=== PATIENT | male | born 1960 | race Caucasian/White ===

== ENCOUNTER 2019-06-18 10:18 | Emergency (ER) | payer SELFPAY ==
[2019-06-18 12:58] VITALS: BP 156/106
== END 2019-06-18 12:57 | disposition home or self-care (01) ==
LOC: ED 10:18

== ENCOUNTER 2023-03-17 09:26 | Inpatient (IN) ==
[2023-03-17 10:01] LABS: ABS Basophils 0.1 10^3/uL (0.0-0.1); ABS Lymphocytes 0.9 10^3/uL (1.0-4.8); ABS Monocytes 0.5 10^3/uL (0.0-1.1); ABS Neutrophils 7.8 10^3/uL (1.5-7.6); Eosinophil % 0.5 %; Hematocrit 42.8 % (38-53); Hemoglobin 14.2 g/dL (13.2-16.3); Lymphocyte % 9.7 %; Mean Corpuscular Hemoglobin 29.5 pg (27-33); Mean Corpuscular Hgb Conc 33.2 g/dL (31-36); Mean Corpuscular Volume 88.6 fL (80-97); Mean Platelet Volume 8.4 fL (7.5-11.2); Platelet Count 324 10^3/uL (150-450); Red Blood Count 4.83 10^6/uL (4.06-5.63); Red Cell Distribution Width 14.1 % (12-17); White Blood Count 9.3 10^3/uL (3.6-10.2)
[2023-03-17 10:19] LABS: Albumin 3.7 g/dL (3.2-5.2); Albumin/Globulin Ratio 1.5 (1-3); C Reactive Protein 3.5 mg/L (<8.01); Calcium 8.6 mg/dL (8.6-10.3); Creatinine, Serum 1.21 mg/dL (0.67-1.17); Direct Bilirubin 0.1 mg/dL (0.03-0.18); Globulin 2.4 g/dL (2-4); HDL Cholesterol 40.6 mg/dL; Indirect Bilirubin 0.6 mg/dL (0.3-1.0); Potassium 3.8 mmol/L (3.5-5.0); Total Bilirubin 0.7 mg/dL (0.2-1.0); Total Protein 6.1 g/dL (6.4-8.9); eGFR CKD-EPI 66.4 (>60)
[2023-03-17 10:20] LABS: Activated Partial Thrombo Time 36.5 seconds (26.0-38.0); INR 1.34 (0.83-1.13)
[2023-03-17 10:46] LABS: Alcohol, S < 13 mg/dL (<13)
[2023-03-17 11:38] LABS: High Sensitivity Troponin 1 Hr 9 pg/mL (<20)
[2023-03-17] MEDS: fentaNYL 100 mcg/2 ml 50 MCG/ML VIAL IV SLOW PU ONE (12:35)
[2023-03-17 13:24] LABS: TSH Ultra Thyroid Stim Horm 2.84 mcIU/mL (0.34-5.60)
[2023-03-17 13:35] LABS: Folate 12.28 ng/mL (5.90-24.80)
[2023-03-17 13:36] LABS: Vitamin B12 312 pg/mL (180-914)
[2023-03-17] MEDS ORDERED: Thiamine 100 MG/ML 2 ml VIAL 500 MG in NS 0.9% 250 ml 250 ML IV SCH (14:00)
[2023-03-17] MEDS: NS 0.9% 1000 ml BAG 1,000 ML IV SCH (15:09)
[2023-03-17] MEDS: Thiamine 100 MG/ML 2 ml VIAL 500 MG in NS 0.9% 250 ml 250 ML IV SCH ×2 (15:09→23:00)
[2023-03-17] MEDS ORDERED: Rocuronium 50 mg VIAL 10 mg/ml 5 ml VIAL (50 mg) ONE (17:27)
[2023-03-17] MEDS ORDERED: Succinylcholine 200 mg VIAL 20 mg/ml 10 ml VIAL (200 mg) ONE (17:27)
[2023-03-17] MEDS ORDERED: diazePAM INJ CARPUJECT 5 MG/ML SYRINGE ONE (17:29)
[2023-03-17] MEDS ORDERED: levETIRAcetam 1000MG IVPREMIX 1,000 MG/100 ML BAG ONE (17:37)
[2023-03-17] MEDS ORDERED: Propofol 10 mg/ml 100 ML BTL 1,000 MG/100 ML BTL ONE (17:38)
[2023-03-17] MEDS: Midazolam PREMIXBAG 1 MG/ML NS 100 ML IV SCH ×2 (18:14→21:18)
[2023-03-17] MEDS ORDERED: Lorazepam PYXIS KEY PRN (18:20)
[2023-03-17] MEDS ORDERED: Midazolam 5 mg/ml concentrated 5 mg/ml 1 ml VIAL ONE (18:47)
[2023-03-17] MEDS: Midazolam 10 mg/10 ml VIAL 1 mg/ml 10 ml VIAL (10 mg) IV SLOW PU ONE (19:04)
[2023-03-17] MEDS: Lidocaine 1% VIAL 10 MG/ML 30 ML VIAL INJ ONE (20:23)
[2023-03-17 20:40] LABS: Urine Appearance Cloudy; Urine Bilirubin Negative (Negative); Urine Blood 2+ (Negative); Urine Color Yellow; Urine Glucose Negative (Negative); Urine Ketones Negative (Negative); Urine Nitrite Negative (Negative); Urine Protein 2+(100 mg/dL) (Negative); Urine Specific Gravity 1.032 (1.002-1.030); Urine Urobilinogen Negative (Negative)
[2023-03-17 20:47] LABS: Calcium 8.6 mg/dL (8.6-10.3); Creatinine, Serum 1.14 mg/dL (0.67-1.17); Potassium 3.9 mmol/L (3.5-5.0); eGFR CKD-EPI 71.4 (>60)
[2023-03-17 20:53] LABS: Urine Benzodiazepine Screen Presumptive Positive (None Detect); Urine Cannabinoids Screen None Detected (None Detect); Urine Opiates Screen None Detected (None Detect)
[2023-03-17 20:57] LABS: Urine Bacteria 1+ (Absent); Urine Red Blood Cell 2+(6-10/hpf) (Absent); Urine White Blood Cell Trace(0-5/hpf) (Absent)
[2023-03-17] MEDS: Chlorhexidine MOUTHWASH 0.12% 15 ML UDC TOPICAL SCH (22:45)
[2023-03-18] MEDS: fentaNYL INFUSION 50 mcg/mL VL 2,500 MCG/50 ML VIAL IV SCH (01:54)
[2023-03-18] MEDS: LORazepam 2 mg VIAL 1 ml IV PUSH SCH (02:11)
[2023-03-18 06:34] LABS: ABS Basophils 0.1 10^3/uL (0.0-0.1); ABS Lymphocytes 0.8 10^3/uL (1.0-4.8); ABS Monocytes 1.2 10^3/uL (0.0-1.1); ABS Neutrophils 8.9 10^3/uL (1.5-7.6); Eosinophil % 0.1 %; Hematocrit 37.2 % (38-53); Hemoglobin 12.8 g/dL (13.2-16.3); Mean Corpuscular Hemoglobin 30.1 pg (27-33); Mean Corpuscular Hgb Conc 34.3 g/dL (31-36); Mean Corpuscular Volume 87.7 fL (80-97); Mean Platelet Volume 8.3 fL (7.5-11.2); Platelet Count 297 10^3/uL (150-450); Red Blood Count 4.24 10^6/uL (4.06-5.63); White Blood Count 10.9 10^3/uL (3.6-10.2)
[2023-03-18 06:51] LABS: Albumin 3.5 g/dL (3.2-5.2); Albumin/Globulin Ratio 1.5 (1-3); Calcium 8.3 mg/dL (8.6-10.3); Creatinine, Serum 1.02 mg/dL (0.67-1.17); Globulin 2.3 g/dL (2-4); Magnesium 1.6 mg/dL (1.9-2.7); Potassium 3.7 mmol/L (3.5-5.0); Total Bilirubin 1.6 mg/dL (0.2-1.0); Total Protein 5.8 g/dL (6.4-8.9); eGFR CKD-EPI 81.6 (>60)
[2023-03-18] MEDS: Iodixanol 320 (CONTRAST) 100 ML SDV IV ONE (07:29)
[2023-03-18] MEDS: levETIRAcetam 500 MG IVPREMIX 500 MG/100 ML BAG IV SCH (08:59)
[2023-03-18] MEDS: Pantoprazole VIAL 40 MG VIAL IV SCH (09:07)
[2023-03-18] MEDS: Midazolam PREMIXBAG 1 MG/ML NS 100 ML IV SCH (10:11)
[2023-03-18] MEDS: Midazolam 5 mg/5 ml VIAL 1 mg/ml 5 ml VIAL (5 mg) IV SLOW PU ONE (17:23)
[2023-03-18] MEDS: Midazolam 5 mg/5 ml VIAL 1 mg/ml 5 ml VIAL (5 mg) ONE (17:29)
[2023-03-18] MEDS: Acetaminophen IV 1 GM/100ML 1,000 MG/100 ML BAG IV PRN (19:10)
[2023-03-18] MEDS: Cefepime 2 GM in Dextrose 2 GM/50 ML BAG IV SCH (19:59)
[2023-03-18] MEDS: Enoxaparin 100 MG/ML SYR SUBCUT SCH (21:25)
[2023-03-18] MEDS: Gadoteridol (CONTRAST) 279.3 MG/ML 10 ML IV ONE (23:15)
[2023-03-19 04:31] LABS: ABS Eosinophils 0.1 10^3/uL (0.0-0.5); ABS Lymphocytes 1.2 10^3/uL (1.0-4.8); ABS Monocytes 1.1 10^3/uL (0.0-1.1); ABS Neutrophils 8.5 10^3/uL (1.5-7.6); ABS Nucleated RBC 0.01 10^3/ul; Hematocrit 36.6 % (38-53); Hemoglobin 12.4 g/dL (13.2-16.3); Lymphocyte % 10.8 %; Mean Corpuscular Hemoglobin 29.8 pg (27-33); Mean Corpuscular Hgb Conc 33.9 g/dL (31-36); Mean Corpuscular Volume 87.9 fL (80-97); Mean Platelet Volume 8.5 fL (7.5-11.2); Nucleated Red Blood Cells % 0.1 %/100WBC (0.0-0.8); Platelet Count 259 10^3/uL (150-450); Red Blood Count 4.17 10^6/uL (4.06-5.63); Red Cell Distribution Width 14.1 % (12-17); White Blood Count 10.9 10^3/uL (3.6-10.2)
[2023-03-19 04:49] LABS: Calcium 8.4 mg/dL (8.6-10.3); Creatinine, Serum 1.12 mg/dL (0.67-1.17); Magnesium 1.6 mg/dL (1.9-2.7); Potassium 3.7 mmol/L (3.5-5.0); eGFR CKD-EPI 72.9 (>60)
[2023-03-19] MEDS: Magnesium Sulfate 2 gm BAG 2 GM/50 ML BAG IVPB ONE (11:30)
[2023-03-19] MEDS: KCL 20 MEQ/100 ML IVPREMIX 20 MEQ/100 ML BAG IV ONE (11:30)
[2023-03-19] MEDS: Enoxaparin 100 MG/ML SYR SUBCUT SCH (11:54)
[2023-03-19] MEDS: Lactated Ringers 1000 ml BAG 1,000 ML IV ONE ×2 (16:05→17:48)
[2023-03-19] MEDS: Propofol 10 mg/ml 100 ML BTL 1,000 MG/100 ML BTL IV SCH (20:30)
[2023-03-20 02:07] LABS: Calcium 8.6 mg/dL (8.6-10.3); Creatinine, Serum 1.16 mg/dL (0.67-1.17); Potassium 3.8 mmol/L (3.5-5.0); eGFR CKD-EPI 69.9 (>60)
[2023-03-20 04:07] LABS: ABS Eosinophils 0.1 10^3/uL (0.0-0.5); ABS Lymphocytes 0.7 10^3/uL (1.0-4.8); ABS Monocytes 0.9 10^3/uL (0.0-1.1); ABS Neutrophils 10.8 10^3/uL (1.5-7.6); Eosinophil % 1.2 %; Hematocrit 36.1 % (38-53); Lymphocyte % 5.9 %; Mean Corpuscular Hemoglobin 29.2 pg (27-33); Mean Corpuscular Hgb Conc 33.2 g/dL (31-36); Mean Platelet Volume 8.6 fL (7.5-11.2); Platelet Count 270 10^3/uL (150-450); Red Cell Distribution Width 13.9 % (12-17); White Blood Count 12.6 10^3/uL (3.6-10.2)
[2023-03-20 04:19] LABS: Calcium 8.6 mg/dL (8.6-10.3); Creatinine, Serum 1.08 mg/dL (0.67-1.17); Magnesium 1.9 mg/dL (1.9-2.7); Potassium 3.9 mmol/L (3.5-5.0); eGFR CKD-EPI 76.2 (>60)
[2023-03-20] MEDS: Metoprolol Tartrate 5 mg VIAL 5 ml VIAL (1 mg/ml) IV PRN (08:17)
[2023-03-20] MEDS: Magnesium Sulfate 2 gm BAG 2 GM/50 ML BAG IVPB ONE (09:11)
[2023-03-20] MEDS ORDERED: Vancomycin per Pharmacy 1 EA NOTE FOLLOW UP SCH (10:00)
[2023-03-20] MEDS: KCL 20 MEQ/100 ML IVPREMIX 20 MEQ/100 ML BAG IV ONE (10:41)
[2023-03-20] MEDS: Vancomycin 1,500 MG in NS 0.9% 250 ml 250 ML IVPB ONE (12:07)
[2023-03-20] MEDS: Vancomycin 1000 MG in NS 0.9% 250 ML IVPB SCH (23:44)
[2023-03-21] MEDS: Lactulose 30 ml UDC NG TUBE ONE (00:33)
[2023-03-21 04:08] LABS: ABS Basophils 0.1 10^3/uL (0.0-0.1); ABS Eosinophils 0.1 10^3/uL (0.0-0.5); ABS Lymphocytes 0.7 10^3/uL (1.0-4.8); ABS Monocytes 0.9 10^3/uL (0.0-1.1); ABS Neutrophils 9.9 10^3/uL (1.5-7.6); ABS Nucleated RBC 0.01 10^3/ul; Eosinophil % 0.9 %; Hematocrit 34.3 % (38-53); Hemoglobin 11.6 g/dL (13.2-16.3); Lymphocyte % 5.7 %; Mean Corpuscular Hemoglobin 29.6 pg (27-33); Mean Corpuscular Hgb Conc 33.8 g/dL (31-36); Mean Corpuscular Volume 87.5 fL (80-97); Mean Platelet Volume 8.3 fL (7.5-11.2); Nucleated Red Blood Cells % 0.1 %/100WBC (0.0-0.8); Platelet Count 351 10^3/uL (150-450); Red Blood Count 3.92 10^6/uL (4.06-5.63); Red Cell Distribution Width 14.2 % (12-17); White Blood Count 11.7 10^3/uL (3.6-10.2)
[2023-03-21 04:25] LABS: Potassium 3.9 mmol/L (3.5-5.0)
[2023-03-21 04:26] LABS: Creatinine, Serum 0.95 mg/dL (0.67-1.17); eGFR CKD-EPI 88.8 (>60)
[2023-03-21 11:16] LABS: Venous Bicarbonate HCO3 21.7 mmol/L (24-28)
[2023-03-21] MEDS: Morphine PCA ADULT 5 MG/ML 30 ML PCA SCH (15:03)
[2023-03-21] MEDS ORDERED: Ondansetron 4 mg VIAL 2 MG/ML 2 ml VIAL IV PRN (15:57)
[2023-03-21] MEDS: LORazepam 2 mg VIAL 1 ml IV PUSH PRN (16:40)
[2023-03-21] MEDS ORDERED: LORazepam 2 mg VIAL 1 ml IV PUSH PRN (16:46)
[2023-03-21] MEDS ORDERED: Lorazepam PYXIS KEY PRN (16:46)
[2023-03-21 18:04] VITALS: BP 156/84
[2023-03-21] MEDS: Scopolamine 1 mg/72hr PATCH TRANSDERM SCH (19:48)
[2023-03-21] MEDS: Atropine 1% (ORAL/SL) 15 ML BTL SL PRN (20:13)
[2023-03-22] MEDS: Morphine 10 MG/ML VIAL (1 ml) IV ONE (04:45)
[2023-03-22] MEDS ORDERED: Vancomycin Trough Check NOTE FOLLOW UP ONE (11:30)
== END 2023-03-23 04:38 | disposition expired | DRG 100 ==
LOC: EDHOLD 09:26 → ED 09:26 → SUATTDRO 19:18 → EDHOLD 19:38 → ICU 19:47
PROVIDERS: ADMIT Hospitalist; ATTEND Internal Medicine